=== PATIENT | female | born 1955 | race Caucasian/White ===

== ENCOUNTER 2021-02-24 13:04 | Outpatient (CLI) | payer OTHER, SELFPAY ==
--- NOTE | ~2021-02-24 | US_ITS ---
EXAMINATION: US venous doppler LE RT DATE: 02/24/2021 13:34 INDICATION: Right lower limb pain TECHNIQUE: Grayscale ultrasound images without and with compression and Doppler ultrasound images of the right lower extremity veins were obtained. COMPARISON: None. FINDINGS: The visualized portions of right common femoral vein, profunda (deep) femoral vein, femoral vein, pop liteal vein, posterior tibial veins, peroneal veins, gastrocnemius vein and greater saphenous vein ou tflow are patent. IMPRESSION: 1. No deep venous thrombosis in the right lower limb. Reviewed, dictated and finalized at location A.
== END 2021-02-24 13:05 | disposition home or self-care (01) ==
PROVIDERS: PCP Registered Nurse; Visit Provider Registered Nurse
DX: R22.43 Localized swelling, mass and lump, lower limb, bilateral (principal)
CPT/HCPCS: 93971

== ENCOUNTER → 2021-05-11 17:48 | Outpatient (CLI) | payer OTHER, SELFPAY ==
--- NOTE | ~2021-05-11 | MM_ITS ---
EXAMINATION: MM screening [facility] BI w michelle HISTORY: Screening mammogram TECHNIQUE: Craniocaudal and mediolateral oblique 3-D tomosynthesis images were obtained and synthetic 2-D images were generated. CAD analysis was submitted and interpreted. COMPARISON: 01/01/2014, 12/21/2011 BREAST PARENCHYMAL COMPOSITION: The breasts are almost entirely fatty. FINDINGS: There is no evidence of suspicious mass, calcification, or architectural distortion to sugg est malignancy in either breast. There has been no suspicious interval change. IMPRESSION: 1. No mammographic evidence of malignancy. 2. Recommend routine screening mammography in one year. BI-RADS Category 1: Negative Reviewed, dictated and finalized at location D.
--- NOTE | ~2021-05-11 | DEXA_ITS ---
Bone Density Report Name: Yuliana Colbert Age: 66 Sex: Female Ethnicity: White Date of : 1955 Indication: postmenopausal; screening for osteoporosis; prior fracture; Referring Provider: Isabela, Joann Study: Bone densitometry was performed. Exam Date: May 11, 2021 Accession number: [id number] Bone Density: Region BMD T-score Z-score Classification AP Spine (L1-L4) 0.888 -1.4 0.3 Osteopenia Femoral Neck (Left) 0.561 -2.6 -1.1 Osteoporosis Total Hip (Left) 0.776 -1.4 -0.1 Osteopenia Femoral Neck (Right) 0.599 -2.2 -0.7 Osteopenia Total Hip (Right) 0.778 -1.3 -0.1 Osteopenia Total Hip Mean 0.777 -1.4 -0.1 Osteopenia World Health Organization criteria for BMD impression classify patients as: Normal (T-score at or above -1.0), Osteopenia (T-score between -1.0 and -2.5), or Osteoporosis (T-score at or below -2.5). 10-year Fracture Risk: FRAX not reported because: Some T-score for Spine Total or Hip Total or Femoral Neck at or below -2.5 Previous Exams: Region Exam Age BMD T-score BMD Change BMD Change Date g/cm2 vs Baseline vs Previous AP Spine(L1-L4) 05/11/2021 66 0.888 -1.4 -0.093 -0.093 12/21/2011 56 0.982 -0.6 Total Hip(Left) 05/11/2021 66 0.776 -1.4 -0.120 -0.120 12/21/2011 56 0.896 -0.4 Total Hip(Right) 05/11/2021 66 0.778 -1.3 -0.136 -0.136 12/21/2011 56 0.914 -0.2 *Denotes significance at 95% confidence level, LSC for AP Spine = 0.022 g/cm2, LSC for Total Hip = 0.027 g/cm2 Clinical Information Provided by Patient: Has had a low trauma fracture Has used the following medications: Vitamin D Patient maximum height was 63 Menopause Age: 51 Does not regularly consume dairy products Drinks caffeinated beverages Onset of menses at age 14 Number of children 1 Missed period for more than 6 months in a row Impression: The patient has established osteoporosis, based on the Left Femoral Neck T-score and the existence of a prior fracture. The patient has risk factors, including: previous fracture. No significant bone loss was observed. Discussion: HIGH RISK OF FRACTURE. BONE DENSITY IS UNDESIRABLY LOW AT ONE OR MORE SKELETAL SITES, CONSISTENT WITH POSTMENOPAUSAL OSTEOPOROSIS. This patient's lowest T-score, in a patient who has previously fractured, meets the World Health Organization's (WHO) criteria for severe osteoporosis. In untreated patients, the risk of osteoporotic fract
== END ==
PROVIDERS: PCP Registered Nurse; Visit Provider Registered Nurse
DX: Z12.31 Encounter for screening mammogram for malignant neoplasm of breast (principal); Z13.820 Encounter for screening for osteoporosis; M81.0 Age-related osteoporosis without current pathological fracture; M85.851 Other specified disorders of bone density and structure, right thigh; M85.88 Other specified disorders of bone density and structure, other site
CPT/HCPCS: 77063; 77067; 77080

== ENCOUNTER 2022-03-03 17:34 | Emergency (ER) | payer OTHER, SELFPAY ==
--- NOTE | ~2022-03-03 | XR_ITS ---
XR foot LT min 3V 03/03/2022 17:55 Indication: Left foot pain after blunt trauma Procedure: 4 views left foot Comparison: No prior studies for comparison. Findings: Osteopenia. Mild polyarticular osteoarthritis. Lisfranc joint intact. There are degenerativ e calcaneal enthesophytes. There are vascular calcifications. Impression: 1: No acute fracture. Reviewed, dictated and finalized at location A. Impression: 1: No acute fracture.
[2022-03-03 17:42] VITALS: BP 117/72; PULSE 73; RESP 16; TEMP 36.9; O2SAT 99
[2022-03-03 17:51] VITALS: BP 117/72; PULSE 73; RESP 16; TEMP 36.9; O2SAT 99
--- NOTE | 2022-03-03 18:16 | ED.LOWEXIN ---
HPI - Extremity Injury (Lower) General Chief Complaint: Extremity Injury, Lower Stated Complaint: left foot pain Time Seen by Provider: 03/03/22 17:46 Source: patient Mode of arrival: ambulatory Limitations: no limitations History of Present Illness HPI Narrative: Patient presents today complaining of 2 injuries to the dorsum of her left foot. 1 week ago, she dropped a piece of wood on her foot on her deck. Yesterday she tripped over a portion of a metal gate in her home, injuring her first toe and distal foot. She has been ambulating since both injuries. Denies numbness or tingling. She currently rates her pain 8/10 and has tried no [id number] interventions prior to arrival. She is up-to-date on her tetanus vaccine. Related Data Home Medications Medication Instructions Recorded Confirmed alendronate 70 mg tablet 70 mg PO WEEKLY 03/03/22 03/03/22 atorvastatin 10 mg tablet 10 mg PO DAILY 03/03/22 03/03/22 blood sugar diagnostic (Contour 03/03/22 03/03/22 Next Test Strips) clopidogrel 75 mg tablet 75 mg PO DAILY 03/03/22 03/03/22 glimepiride 4 mg tablet 4 mg PO DAILY 03/03/22 03/03/22 losartan 25 mg tablet 25 mg PO DAILY 03/03/22 03/03/22 metformin 1,000 mg tablet 1,000 mg PO DAILY 03/03/22 03/03/22 sertraline 100 mg tablet 100 mg PO DAILY 03/03/22 03/03/22 Allergies Allergy/AdvReac Type Severity Reaction Status Date / Time sulfamethoxazole Allergy Rash Verified 03/03/22 18:04 [From ] trimethoprim [From ] Allergy Rash Verified 03/03/22 18:04 Review of Systems Review of Systems: CONSTITUTIONAL: Denies body aches, fever, chills, or sweats. EYES: Denies visual changes, redness, or discharge. ENT: Denies rhinorrhea, congestion, sore throat, or otalgia. CARDIOVASCULAR: Denies chest pain, palpitations, or edema. RESPIRATORY: Denies cough or dyspnea. GASTROINTESTINAL: Denies abdominal pain, nausea, vomiting, or diarrhea. GENITOURINARY: Denies dysuria or hematuria. SKIN: Denies rash, itching, or wounds. MUSCULOSKELETAL: Denies back pain, or myalgia.+ Left foot injury NEUROLOGIC: Denies headache, numbness, tingling, or weakness. PSYCH: Denies depression or anxiety. PMFSH Comments At time of signature, I have reviewed and agree with nursing past medical, surgical, social and family history unless otherwise noted. Please see nursing chart for further information. There is no relevant family history pertinent to the presenting complaint Exam Narrative: GENERAL: Well-appearing, well-nourished, and in no acute distress. HEAD: Normocephalic, atraumatic. EYES: EOMI. No redness or drainage. Conjunctivae normal. ENT: Mucous membranes pink and moist. NECK: Normal AROM. CHEST: No respiratory distress. EXTREMITIES: Left foot: Ecchymosis to the first MTP and proximal phalanx as well as the second toe. Patient has tenderness to the distal first metatarsal. There is a very superficial abrasion measuring approximately 1 to 1-1/2 cm to the mid first metatarsal with surrounding mild erythema. The area of erythema is tender to palpation. No edema noted to the foot or toes. Distal sensation intact. Capillary refill normal. Pedal pulse normal. Full range of motion of all toes. SKIN: Warm, dry, no rash. Capillary refill normal. Normal skin turgor. NEURO: No focal deficits. Alert and oriented x3. Gait steady. PSYCH: Normal affect. No signs of depression or anxiety. Course Course Level of Care: Express Care Visit Vital Signs Vital signs: Vital Signs Temperature 98.4 F 03/03/22 17:42 Pulse Rate 73 03/03/22 17:42 Respiratory Rate 16 03/03/22 17:42 Blood Pressure 117/72 03/03/22 17:42 Pulse Oximetry 99 03/03/22 17:42 Oxygen Delivery Room Air 03/03/22 17:42 Temperature 98.4 F 03/03/22 17:51 Pulse Rate 73 03/03/22 17:51 Respiratory Rate 16 03/03/22 17:51 Blood Pressure 117/72 03/03/22 17:51 Pulse Oximetry 99 03/03/22 17:51 Oxygen Delivery Room Air 03/03/22
== END 2022-03-03 18:25 | disposition home or self-care (01) ==
PROVIDERS: Emergency Provider Nurse Practitioner
DX: L03.116 Cellulitis of left lower limb (principal); S90.32XA Contusion of left foot, initial encounter; W20.8XXA Other cause of strike by thrown, projected or falling object, initial encounter; E78.00 Pure hypercholesterolemia, unspecified; I10 Essential (primary) hypertension; M81.0 Age-related osteoporosis without current pathological fracture; E11.9 Type 2 diabetes mellitus without complications; Z95.5 Presence of coronary angioplasty implant and graft
CPT/HCPCS: 73630; 99213; G0463

== ENCOUNTER 2023-06-13 13:18 | Outpatient (CLI) | payer MEDICARE, SELFPAY ==
--- NOTE | ~2023-06-13 | DEXA_ITS ---
Bone Density Report Name: DIDI BERRY Age: 68 Sex: Female Ethnicity: White Date of : 1955 Indication: postmenopausal; screening for osteoporosis; height loss; Referring Provider: LIAM, JOSIE Study: Bone densitometry was performed. Exam Date: June 13, 2023 Accession number: [id number] Bone Density: Region BMD T-score Z-score Classification AP Spine(L1-L4) 0.932 -1.0 0.9 Normal Femoral Neck (Left) 0.590 -2.3 -0.7 Osteopenia Total Hip (Left) 0.754 -1.5 -0.2 Osteopenia Femoral Neck (Right) 0.595 -2.3 -0.6 Osteopenia Total Hip (Right) 0.790 -1.2 0.1 Osteopenia Femoral Neck Mean 0.592 -2.3 -0.7 Osteopenia Total Hip Mean 0.772 -1.4 0.0 Osteopenia World Health Organization criteria for BMD impression classify patients as: Normal (T-score at or above -1.0), Osteopenia (T-score between -1.0 and -2.5), or Osteoporosis (T-score at or below -2.5). 10-year Fracture Risk: FRAX not reported because: Treated for osteoporosis Clinical Information Provided by Patient: Is being treated for osteoporosis Has used the following medications: Fosamax (i.e. alendronate), Calcium Patient maximum height was 63 Menopause Age: 46 No regular weight bearing exercise Does not regularly consume dairy products Onset of menses at age 14 Number of children 1 Missed period for more than 6 months in a row Impression: The patient has low bone mass, based on the Left Femoral Neck T-score. Discussion: It is important to ask patients whether they are taking their medications and to encourage continued and appropriate compliance with their osteoporosis therapies to reduce fracture risk. It is also important to review their risk factors and encourage appropriate calcium and vitamin D intakes, exercise, fall prevention and other lifestyle measures. Follow-Up: Consider a repeat BMD and Vertebral Fracture Assessment (VFA) exam in 2 years or sooner if medically necessary, to reassess this patient's status. Reported by: Dr. Bill Gunn on 06/13/2023 1:54:00 PM. Reviewed, dictated and finalized at location A. [facility] [place] [facility]
--- NOTE | ~2023-06-13 | MM_ITS ---
EXAMINATION: MM screening [facility] BI w michelle HISTORY: Screening TECHNIQUE: Craniocaudal and mediolateral oblique 3-D tomosynthesis images were obtained and synthetic 2-D images were generated. CAD analysis was submitted and interpreted. COMPARISON: 05/11/2021 BREAST PARENCHYMAL COMPOSITION: There are scattered areas of fibroglandular density. FINDINGS: The right breast is stable without evidence for malignancy. There is a new mass in the lowe r central aspect of the left breast, middle third. The margins are irregular. IMPRESSION: 1. New irregular shaped mass lower central aspect of the left breast. 2. Additional mammographic views and possible breast ultrasound are recommended. BI-RADS Category 0: Incomplete: Needs additional imaging evaluation. Reviewed, dictated and finalized at location A. CH OPTIMIZATION ANALYST IMPRESSION: 1. New irregular shaped mass lower central aspect of the left breast. 2. Additional mammographic views and possible breast ultrasound are recommended . BI-RADS Category 0: Incomplete: Needs additional imaging evaluation.
== END 2023-06-13 13:19 | disposition home or self-care (01) ==
LOC: CHSIMG 13:20
PROVIDERS: PCP Registered Nurse; Visit Provider Registered Nurse
DX: Z12.31 Encounter for screening mammogram for malignant neoplasm of breast (principal); Z78.0 Asymptomatic menopausal state; M85.89 Other specified disorders of bone density and structure, multiple sites; R92.8 Other abnormal and inconclusive findings on diagnostic imaging of breast
CPT/HCPCS: 77063; 77067; 77080

== ENCOUNTER → 2023-06-21 10:58 | Outpatient (CLI) | payer MEDICARE, SELFPAY ==
--- NOTE | ~2023-06-21 | XR_ITS ---
XR abdomen obstructive series DATE: 06/21/2023 11:31 INDICATION: Constipation TECHNIQUE: 2 supine AP views and one upright AP view COMPARISON: None FINDINGS: Radiopaque sutures and clips of left upper quadrant are noted. The psoas shadows are intact. No visceromegaly is evident. There is a prominent amount of fecal material in the rectum and throughout the colon consistent with clinical presentation of constipation. No bowel obstruction or intraperitoneal free air is detected. No significant abnormal calcification is noted. IMPRESSION: Prominent amount fecal material throughout the rectum and colon consistent with clinical presentation of constipation; no evidence of bowel obstruction or free air Postoperative change of left upper quadrant Reviewed, dictated and finalized at Location A. Reviewed, dictated and finalized at location B. STANT PORTFOLIO MANAGER IMPRESSION: Prominent amount fecal material throughout the rectum and colon con sistent with clinical presentation of constipation; no evidence of bowel obstru ction or free air Postoperative change of left upper quadrant
== END ==
PROVIDERS: PCP Registered Nurse; Visit Provider Registered Nurse
DX: K59.00 Constipation, unspecified (principal)
CPT/HCPCS: 74019

== ENCOUNTER → 2023-07-13 08:21 | Outpatient (CLI) | payer MEDICARE, SELFPAY ==
--- NOTE | ~2023-07-13 | MMUS_ITS ---
EXAMINATION: MM diagnostic [facility] LT w michelle, US breast LT limited HISTORY: Left breast mass on screening mammogram TECHNIQUE: Additional 3-D tomosynthesis images of the left breast were performed and synthetic 2-D im ages were generated. CAD analysis was submitted and interpreted. High resolution limited left breast ultrasound was performed. COMPARISON: 06/13/2023, 05/11/2021, 01/01/2014 FINDINGS: MAMMOGRAPHIC FINDINGS: There is a 1.2 cm irregular, high density mass with a spiculated margin and surrounding architectural distortion at the 6:00 location, 4 cm from the nipple in the middle third of the breast ULTRASOUND: There is a 1.2 x 0.8 cm parallel, hypoechoic mass with irregular margins, posterior acoustic enhancem ent, and internal vascularity at the 7 6:00 location, 3.5 cm from the nipple. IMPRESSION: 1. Suspicious left breast mass. 2. Ultrasound guided biopsy is recommended. BI-RADS category 5, highly suggestive of malignancy. Reviewed, dictated and finalized at location A. MS SPECIALIST IMPRESSION: 1. Suspicious left breast mass. 2. Ultrasound guided biopsy is recommended. BI-RADS category 5, highly suggestive of malignancy.
== END ==
PROVIDERS: PCP Registered Nurse; Visit Provider Registered Nurse
DX: N63.23 Unspecified lump in the left breast, lower outer quadrant (principal)
CPT/HCPCS: 76642; 77061; 77065; G0279

== ENCOUNTER 2024-11-04 08:42 | Outpatient (CLI) | payer OTHER, SELFPAY ==
--- NOTE | ~2024-11-04 | MM_ITS ---
EXAMINATION: MM diagnostic [facility] BI w michelle HISTORY: Left breast cancer TECHNIQUE: Additional 3-D tomosynthesis images of the breasts were performed and synthetic 2-D images were generated. CAD analysis was submitted and interpreted. COMPARISON: Comparison to multiple prior studies sequentially, with oldest reviewed study dated 12/2020. BREAST PARENCHYMAL COMPOSITION: Not dense: There are scattered areas of fibroglandular density. FINDINGS: The right breast is stable without evidence for malignancy. There are lumpectomy changes in the lower central aspect of the left breast corresponding to the prior area of malignancy with assoc iated architectural distortion. No discrete mass or suspicious calcifications are identified. IMPRESSION: 1. No evidence for malignancy in either breast. Architectural distortion present lower central left b reast, consistent with previous lumpectomy site. 2. Routine yearly screening mammogram and regular clinical breast examination are recommended. BI-RADS Category 2: Benign finding(s). Reviewed, dictated and finalized at location A. IMPRESSION: 1. No evidence for malignancy in either breast. Architectural distortion presen t lower central left breast, consistent with previous lumpectomy site. 2. Routine yearly screening mammogram and regular clinical breast examination a re recommended. BI-RADS Category 2: Benign finding(s).
== END 2024-11-04 08:43 | disposition home or self-care (01) ==
LOC: MICIMG 08:43
PROVIDERS: PCP Registered Nurse; Visit Provider Surgery
DX: C50.812 Malignant neoplasm of overlapping sites of left female breast (principal)
CPT/HCPCS: 77062; 77066; G0279